=== PATIENT | female | born 1935 | race Caucasian/White ===

== ENCOUNTER 2018-12-15 01:04 | Inpatient (IN) | payer MEDICARE, OTHER ==
[2018-12-15] VITALS (27 sets, daily range): BP systolic 101–143; BP diastolic 46–94; PULSE 59–74; RESP 14–21; Ht 154.9 cm; Wt 83.9 kg
[~2018-12-15] VITALS: Ht 154.9 cm; Wt 83.9 kg
[~2018-12-15 01:04] MED LIST: ACET650S25 PO; ALBU18HF INH; ALEN70SO3 PO; ASPI-676 PO; ASPI-831 PO; ATRO INH; BENA10TA4 PO; BISA10SU55 PR; CHOL50009 PO; CLON0.1T14 PO; CLON1PAT2 TRANSDERM; DEXL60CA2 PO; DICL100G9 TP; EXEL46P TD; EXEL46P TRANSDERM; EZET10TA31 PO; FAMO20TA18 PO; FLUT1DIS23 IH; FURO40TA4 PO; GABA300C16 PO; GLIM1TAB2 PO; LAS20 PO; LOSA1TAB22 PO; MELO7.5T38 PO; MEMA5TAB PO; OLOP5DRO12 OP; SIMV20TA2 PO; THEO80EL4 PO; TIOT18CA IH; TIOT18CA INH; ventolin
[2018-12-15] MEDS ORDERED: PROPOFOL 100 ML IV STA (01:12)
[2018-12-15] MEDS ORDERED: SUCCINYLCHOLINE CHLORIDE 100 MG/5 ML SYG IV ONE (01:30)
[2018-12-15] MEDS ORDERED: ETOMIDATE 20 MG INJ IV ONE (01:30)
[2018-12-15] MEDS: FENTAnyl (DRIP) 1000 mcg/100mL 100 ML IV SCH ×2 (01:56→12:54)
[2018-12-15] MEDS ORDERED: LORAZEPAM 2 MG INJ ONE (02:35)
[2018-12-15] MEDS ORDERED: LORAZEPAM 2 MG INJ IV ONE (03:00)
[2018-12-15] MEDS ORDERED: DEXAMETHASONE 10 MG/ML 1 ML INJ IV ONE (03:00)
[2018-12-15] MEDS ORDERED: SODIUM CHLORIDE 0.9% 1L BAG IV* ONE (04:00)
[2018-12-15] MEDS ORDERED: ONDANSETRON 4 MG INJ IV PRN (05:30)
[2018-12-15] MEDS ORDERED: IPRATROPIUM (HFA) 12.9 GM INHALER INH PRN (05:30)
[2018-12-15] MEDS ORDERED: ACETAMINOPHEN 650 MG SUPP PR ONE (05:30)
[2018-12-15] MEDS ORDERED: ACETAMINOPHEN 650MG/20.3ML CUP PO PRN (05:30)
[2018-12-15] MEDS ORDERED: ALBUTEROL HFA 8 GM INHALER INH PRN (05:30)
[2018-12-15] MEDS ORDERED: MIDAZOLAM (DRIP) 50 mg/50 mL 50 ML IV SCH (06:30)
[2018-12-15] MEDS: PANTOPRAZOLE 40 MG INJ IV SCH (06:40)
[2018-12-15] MEDS: DEXTROSE 5%-0.45% NACL 1,000 ML IV SCH ×2 (06:41→15:05)
[2018-12-15] MEDS: TIOTROPIUM 18 MCG CAPSULE INHA DEV INH SCH (08:17)
[2018-12-15] MEDS: ENOXAPARIN 40 MG/0.4 ML SYG SC SCH (08:24)
[2018-12-15] MEDS: CEFTRIAXONE 1 GM/50 ML (PMX) 50 ML IVPB SCH (08:25)
[2018-12-15] MEDS: ASPIRIN 81 MG TAB PO SCH (08:25)
[2018-12-15] MEDS: RIVASTIGMINE 4.6MG/24H PATCH TRANSDERM SCH (08:30)
[2018-12-15] MEDS ORDERED: METHYLPREDNISOLONE 125 MG INJ IV SCH (09:00)
[2018-12-15] MEDS ORDERED: EZETIMIBE 10 MG TAB PO SCH (09:00)
[2018-12-15] MEDS: AZITHROMYCIN 500MG/NS (PMX) 250 ML IVPB SCH (10:00)
[2018-12-15] MEDS: PROPOFOL 100 ML IV SCH ×4 (10:00→23:24)
[2018-12-16] VITALS (38 sets, daily range): BP systolic 91–145; BP diastolic 43–89; PULSE 45–60; RESP 14–19
[2018-12-16] MEDS: FENTAnyl (DRIP) 1000 mcg/100mL 100 ML IV SCH (02:38)
[2018-12-16] MEDS: DEXTROSE 5%-0.45% NACL 1,000 ML IV SCH ×2 (04:19→11:05)
[2018-12-16] MEDS: PANTOPRAZOLE 40 MG INJ IV SCH (04:22)
[2018-12-16] MEDS: TIOTROPIUM 18 MCG CAPSULE INHA DEV INH SCH (09:00)
[2018-12-16] MEDS: ASPIRIN 81 MG TAB PO SCH (09:58)
[2018-12-16] MEDS: PROPOFOL 100 ML IV SCH ×2 (09:58→20:20)
[2018-12-16] MEDS: CEFTRIAXONE 1 GM/50 ML (PMX) 50 ML IVPB SCH (09:58)
[2018-12-16] MEDS: RIVASTIGMINE 4.6MG/24H PATCH TRANSDERM SCH (09:59)
[2018-12-16] MEDS ORDERED: METHYLPREDNISOLONE 125 MG INJ IV ONE (10:00)
[2018-12-16] MEDS: ENOXAPARIN 40 MG/0.4 ML SYG SC SCH (10:01)
[2018-12-16] MEDS: ALBUMIN HUMAN 25% 100 ML IV SCH ×2 (10:21→18:37)
[2018-12-16] MEDS: AZITHROMYCIN 500MG/NS (PMX) 250 ML IVPB SCH (10:21)
[2018-12-17] VITALS (35 sets, daily range): BP systolic 90–147; BP diastolic 37–104; PULSE 37–54; RESP 11–17
[2018-12-17] MEDS: POTASSIUM CHLORIDE 100 ML IVPB SCH ×2 (01:04→03:53)
[2018-12-17] MEDS: PROPOFOL 100 ML IV SCH ×5 (02:20→20:15)
[2018-12-17] MEDS: ALBUMIN HUMAN 25% 100 ML IV SCH (03:04)
[2018-12-17] MEDS: FENTAnyl (DRIP) 1000 mcg/100mL 100 ML IV SCH (04:41)
[2018-12-17] MEDS: PANTOPRAZOLE 40 MG INJ IV SCH (05:23)
[2018-12-17] MEDS: RIVASTIGMINE 4.6MG/24H PATCH TRANSDERM SCH (08:12)
[2018-12-17] MEDS: SODIUM CHLORIDE 1 GM TAB PO SCH ×3 (08:12→20:14)
[2018-12-17] MEDS: ASPIRIN 81 MG TAB PO SCH (08:12)
[2018-12-17] MEDS: CEFTRIAXONE 1 GM/50 ML (PMX) 50 ML IVPB SCH (08:13)
[2018-12-17] MEDS: ENOXAPARIN 40 MG/0.4 ML SYG SC SCH (08:20)
[2018-12-17] MEDS: AZITHROMYCIN 500MG/NS (PMX) 250 ML IVPB SCH (08:55)
[2018-12-17] MEDS: TIOTROPIUM 18 MCG CAPSULE INHA DEV INH SCH (09:00)
[2018-12-17] MEDS ORDERED: METHYLPREDNISOLONE 125 MG INJ IV ONE (10:00)
[2018-12-17] MEDS: FUROSEMIDE 20 MG INJ IV SCH (12:27)
[2018-12-17] MEDS ORDERED: COLLAGENASE 5 GM (UD JAR) TOP SCH (16:00)
[2018-12-17] MEDS: COLLAGENASE 5 GM (UD JAR) TOP SCH (20:14)
[2018-12-18] VITALS (35 sets, daily range): BP systolic 100–173; BP diastolic 46–142; PULSE 37–98; RESP 12–26
[2018-12-18] MEDS: PROPOFOL 100 ML IV SCH ×2 (00:10→03:58)
[2018-12-18] MEDS: PANTOPRAZOLE 40 MG INJ IV SCH (06:00)
[2018-12-18] MEDS: FUROSEMIDE 20 MG INJ IV SCH (06:00)
[2018-12-18] MEDS: SODIUM CHLORIDE 1 GM TAB PO SCH ×3 (08:03→21:30)
[2018-12-18] MEDS: ASPIRIN 81 MG TAB PO SCH (08:03)
[2018-12-18] MEDS: CEFTRIAXONE 1 GM/50 ML (PMX) 50 ML IVPB SCH (08:03)
[2018-12-18] MEDS: RIVASTIGMINE 4.6MG/24H PATCH TRANSDERM SCH (08:03)
[2018-12-18] MEDS: ENOXAPARIN 40 MG/0.4 ML SYG SC SCH (08:09)
[2018-12-18] MEDS: TIOTROPIUM 18 MCG CAPSULE INHA DEV INH SCH (08:10)
[2018-12-18] MEDS: AZITHROMYCIN 500MG/NS (PMX) 250 ML IVPB SCH (08:46)
[2018-12-18] MEDS ORDERED: METHYLPREDNISOLONE 40 MG INJ IV ONE (10:00)
[2018-12-18] MEDS ORDERED: FUROSEMIDE 20 MG INJ IV ONE ×2 (12:00→13:00)
[2018-12-18] MEDS: ALBUMIN HUMAN 25% 100 ML IV SCH ×3 (14:40→21:33)
[2018-12-18] MEDS: COLLAGENASE 5 GM (UD JAR) TOP SCH (21:29)
[2018-12-19] VITALS (18 sets, daily range): BP systolic 132–173; BP diastolic 48–120; PULSE 63–81; RESP 16–22
[2018-12-19] MEDS: PANTOPRAZOLE 40 MG INJ IV SCH (05:07)
[2018-12-19] MEDS: ALBUMIN HUMAN 25% 100 ML IV SCH (05:08)
[2018-12-19] MEDS: FUROSEMIDE 20 MG INJ IV SCH (05:08)
[2018-12-19] MEDS: SODIUM CHLORIDE 1 GM TAB PO SCH (09:00)
[2018-12-19] MEDS ORDERED: BENAZEPRIL 5 MG TAB PO SCH ×2 (09:00→11:00)
[2018-12-19] MEDS: ASPIRIN 81 MG TAB PO SCH (09:24)
[2018-12-19] MEDS: CEFTRIAXONE 1 GM/50 ML (PMX) 50 ML IVPB SCH (09:25)
[2018-12-19] MEDS: RIVASTIGMINE 4.6MG/24H PATCH TRANSDERM SCH (09:26)
[2018-12-19] MEDS ORDERED: POTASSIUM CHLORIDE 20 MEQ POWDER FOR ORAL SOLN GTB ONE (09:30)
[2018-12-19] MEDS: PROPOFOL 100 ML IV SCH (09:30)
[2018-12-19] MEDS: ENOXAPARIN 40 MG/0.4 ML SYG SC SCH (09:36)
[2018-12-19] MEDS ORDERED: METHYLPREDNISOLONE 40 MG INJ IV ONE (10:00)
[2018-12-19] MEDS: AZITHROMYCIN 500MG/NS (PMX) 250 ML IVPB SCH (10:49)
[2018-12-19] MEDS: COLLAGENASE 5 GM (UD JAR) TOP SCH (21:22)
[2018-12-20] VITALS (7 sets, daily range): BP systolic 123–186; BP diastolic 49–78; PULSE 60–73; RESP 16–20
[2018-12-20] MEDS ORDERED: CLONIDINE 0.2 MG/24 HR PATCH TRANSDERM SCH (01:30)
[2018-12-20] MEDS: FUROSEMIDE 20 MG INJ IV SCH (05:41)
[2018-12-20] MEDS: CEFTRIAXONE 1 GM/50 ML (PMX) 50 ML IVPB SCH (09:23)
[2018-12-20] MEDS: FAMOTIDINE 20 MG INJ IV SCH (09:23)
[2018-12-20] MEDS: TIOTROPIUM 18 MCG CAPSULE INHA DEV INH SCH (09:24)
[2018-12-20] MEDS: RIVASTIGMINE 4.6MG/24H PATCH TRANSDERM SCH (09:24)
[2018-12-20] MEDS: AZITHROMYCIN 500MG/NS (PMX) 250 ML IVPB SCH (09:24)
[2018-12-20] MEDS: ASPIRIN 81 MG TAB PO SCH (09:25)
[2018-12-20] MEDS: BENAZEPRIL 10 MG TAB PO SCH (09:25)
[2018-12-20] MEDS: ENOXAPARIN 40 MG/0.4 ML SYG SC SCH (09:27)
[2018-12-20] MEDS ORDERED: POTASSIUM CHLORIDE (SR) 10 MEQ TAB PO ONE (09:30)
[2018-12-20] MEDS ORDERED: BISACODYL 10 MG SUPP PR PRN (12:00)
[2018-12-20] MEDS: COLLAGENASE 5 GM (UD JAR) TOP SCH (20:31)
[2018-12-21 02:00] VITALS: BP_SYST 122; BP_SYST 138; BP_DIAS 58; BP_DIAS 63; PULSE 67; RESP 19
[2018-12-21 05:25] VITALS: BP 128/67; PULSE 70
[2018-12-21] MEDS: FUROSEMIDE 20 MG INJ IV SCH (05:25)
[2018-12-21 08:21] VITALS: BP 144/64; PULSE 74; RESP 19
[2018-12-21] MEDS: RIVASTIGMINE 4.6MG/24H PATCH TRANSDERM SCH (09:29)
[2018-12-21] MEDS: FAMOTIDINE 20 MG INJ IV SCH (09:29)
[2018-12-21] MEDS: ASPIRIN 81 MG TAB PO SCH (09:30)
[2018-12-21] MEDS: BENAZEPRIL 10 MG TAB PO SCH (09:30)
[2018-12-21] MEDS: TIOTROPIUM 18 MCG CAPSULE INHA DEV INH SCH (09:30)
[2018-12-21] MEDS: ENOXAPARIN 40 MG/0.4 ML SYG SC SCH (09:32)
[2018-12-21 14:52] VITALS: BP 132/67; PULSE 80; RESP 18
[2018-12-21 20:00] VITALS: BP 102/60; PULSE 82; RESP 19
[2018-12-21] MEDS: COLLAGENASE 5 GM (UD JAR) TOP SCH (21:00)
[2018-12-22 02:00] VITALS: BP 113/58; PULSE 81; RESP 17
[2018-12-22] MEDS: FUROSEMIDE 20 MG INJ IV SCH (05:51)
[2018-12-22 07:27] VITALS: BP 121/58; PULSE 76; RESP 18
[2018-12-22] MEDS: TIOTROPIUM 18 MCG CAPSULE INHA DEV INH SCH (09:15)
[2018-12-22] MEDS: FAMOTIDINE 20 MG TAB PO SCH (09:20)
[2018-12-22] MEDS: ASPIRIN 81 MG TAB PO SCH (09:20)
[2018-12-22] MEDS: BENAZEPRIL 10 MG TAB PO SCH (09:20)
[2018-12-22] MEDS: RIVASTIGMINE 4.6MG/24H PATCH TRANSDERM SCH (09:22)
[2018-12-22] MEDS: ENOXAPARIN 40 MG/0.4 ML SYG SC SCH (09:24)
[2018-12-22] MEDS ORDERED: ACETAZOLAMIDE 250 MG TAB PO ONE (13:30)
[2018-12-22 14:00] VITALS: BP 93/49; PULSE 74; RESP 18
[2018-12-22 20:01] VITALS: BP 107/49; PULSE 78; RESP 16
[2018-12-23 02:41] VITALS: BP 130/60; PULSE 73; RESP 17
[2018-12-23 07:56] VITALS: BP 130/58; PULSE 74; RESP 18
[2018-12-23] MEDS: FAMOTIDINE 20 MG TAB PO SCH (08:59)
[2018-12-23] MEDS: BENAZEPRIL 10 MG TAB PO SCH (08:59)
[2018-12-23] MEDS: ASPIRIN 81 MG TAB PO SCH (08:59)
[2018-12-23] MEDS: FUROSEMIDE 20 MG TAB PO SCH (08:59)
[2018-12-23] MEDS: RIVASTIGMINE 4.6MG/24H PATCH TRANSDERM SCH (09:00)
[2018-12-23] MEDS: TIOTROPIUM 18 MCG CAPSULE INHA DEV INH SCH (09:00)
[2018-12-23] MEDS: ENOXAPARIN 40 MG/0.4 ML SYG SC SCH (09:02)
[2018-12-23 14:00] VITALS: BP 110/57; PULSE 81; RESP 18
[2018-12-23 19:27] VITALS: BP 114/53; PULSE 90; RESP 18
[2018-12-23 20:10] VITALS: BP 133/77; PULSE 80; RESP 18
[2018-12-23 20:36] VITALS: PULSE 87
[2018-12-24 02:23] VITALS: BP 116/56; PULSE 82; RESP 20
[2018-12-24 08:33] VITALS: BP 108/52; PULSE 80; RESP 17
[2018-12-24] MEDS: FUROSEMIDE 20 MG TAB PO SCH (09:33)
[2018-12-24] MEDS: BENAZEPRIL 10 MG TAB PO SCH (09:33)
[2018-12-24] MEDS: FAMOTIDINE 20 MG TAB PO SCH (09:33)
[2018-12-24] MEDS: ASPIRIN 81 MG TAB PO SCH (09:33)
[2018-12-24] MEDS: TIOTROPIUM 18 MCG CAPSULE INHA DEV INH SCH (09:34)
[2018-12-24] MEDS: RIVASTIGMINE 4.6MG/24H PATCH TRANSDERM SCH (09:35)
[2018-12-24] MEDS: ENOXAPARIN 40 MG/0.4 ML SYG SC SCH (09:35)
[2018-12-24 14:55] VITALS: BP 114/55; PULSE 88; RESP 18
== END 2018-12-24 16:20 | disposition home or self-care (01) | DRG 871 ==
LOC: E/R 01:04 → ICU 02:43 → MS3 12-19 15:38
PROVIDERS: ADMIT Internal Medicine; ATTEND Family Medicine
PROC: 0BH17EZ Insertion of Endotracheal Airway into Trachea, Via Natural or Artificial Opening (ICD-10-PCS; principal; 2018-12-15)
PROC: 5A1945Z Respiratory Ventilation, 24-96 Consecutive Hours (ICD-10-PCS; 2018-12-15)
PROC: 3E0F7GC Introduction of Other Therapeutic Substance into Respiratory Tract, Via Natural or Artificial Opening (ICD-10-PCS; 2018-12-18)
DX: A41.9 Sepsis, unspecified organism (principal); J96.01 Acute respiratory failure with hypoxia; J96.02 Acute respiratory failure with hypercapnia; E87.1 Hypo-osmolality and hyponatremia; Z99.81 Dependence on supplemental oxygen; D69.6 Thrombocytopenia, unspecified; I73.9 Peripheral vascular disease, unspecified; F03.90 Unspecified dementia, unspecified severity, without behavioral disturbance, psychotic disturbance, mood disturbance, and anxiety; I10 Essential (primary) hypertension; E87.6 Hypokalemia; D50.9 Iron deficiency anemia, unspecified; E78.5 Hyperlipidemia, unspecified; R32 Unspecified urinary incontinence; I89.0 Lymphedema, not elsewhere classified; M81.0 Age-related osteoporosis without current pathological fracture; Z79.82 Long term (current) use of aspirin; Z86.711 Personal history of pulmonary embolism
CPT/HCPCS: 31500; 36415; 36573; 36600; 71045; 80048; 80053; 81001; 82150; 82803; 83036; 83540; 83605; 83735; 83880; 84145; 84439; 84443; 84484; 85025; 85378; 85610; 85730; 87081; 87086; 92526; 92610; 93005; 93306; 94002; 94003; 94770; 96374; 96375; 97110; 97162; 97530; C9113; J0456; J0696; J1100; J1650; J1940; J2060; J2250; J2920; J2930; J3010; J3480; J7030; J7042; P9047

== ENCOUNTER 2019-02-21 10:10 | Inpatient (IN) | payer MEDICARE, OTHER ==
[~2019-02-21] VITALS: Ht 152.4 cm; Wt 104.5 kg
[~2019-02-21 10:10] MED LIST changes: -ALEN70SO3 PO; -ASPI-676 PO; -BENA10TA4 PO; +BENA10TA6 PO; -CHOL50009 PO; -DEXL60CA2 PO; -DICL100G9 TP; -EXEL46P TD; -EZET10TA31 PO; -FLUT1DIS23 IH; -FURO40TA4 PO; -GABA300C16 PO; -GLIM1TAB2 PO; -LOSA1TAB22 PO; -MELO7.5T38 PO; -MEMA5TAB PO; -OLOP5DRO12 OP; -SIMV20TA2 PO; -THEO80EL4 PO; -TIOT18CA IH; -ventolin
[2019-02-21] MEDS ORDERED: ALBUTEROL 0.083% (NEB) 2.5 MG/3 ML AMP HHN STA (10:27)
[2019-02-21] MEDS ORDERED: METHYLPREDNISOLONE 125 MG INJ IV ONE (10:30)
[2019-02-21] MEDS ORDERED: IPRATROPIUM (NEB) 0.5 MG/2.5 ML AMP HHN ONE (10:30)
[2019-02-21] MEDS ORDERED: FUROSEMIDE 40 MG INJ IV ONE (12:00)
[2019-02-21] MEDS ORDERED: ONDANSETRON 4 MG INJ IV PRN (13:00)
[2019-02-21] MEDS ORDERED: ACETAMINOPHEN 325 MG TAB PO PRN (13:00)
[2019-02-21 17:40] VITALS: Ht 152.4 cm; Wt 104.5 kg
[2019-02-21 20:00] VITALS: BP 107/57; PULSE 73; RESP 18
[2019-02-21] MEDS ORDERED: BISACODYL 10 MG SUPP PR PRN (20:00)
[2019-02-21] MEDS ORDERED: ACETAMINOPHEN 650MG/20.3ML CUP PO PRN (20:00)
[2019-02-21] MEDS ORDERED: CLONIDINE 0.2 MG/24 HR PATCH TRANSDERM SCH (20:00)
[2019-02-21] MEDS ORDERED: ALBUTEROL 18 GM INHALER INH PRN (20:00)
[2019-02-21] MEDS ORDERED: IPRATROPIUM (HFA) 12.9 GM INHALER INH PRN (20:00)
[2019-02-21] MEDS: FUROSEMIDE 20 MG INJ IV SCH (22:16)
[2019-02-21 23:33] VITALS: BP 131/64; PULSE 82; RESP 1; RESP 19
[2019-02-22] MEDS: LORAZEPAM 2 MG INJ IV PRN (01:34)
[2019-02-22 04:05] VITALS: BP 154/62; PULSE 103; RESP 18
[2019-02-22 07:33] VITALS: BP 122/58; PULSE 98; RESP 19
[2019-02-22] MEDS ORDERED: METHYLPREDNISOLONE 40 MG INJ IV ONE (09:00)
[2019-02-22] MEDS: FAMOTIDINE 20 MG TAB PO SCH (09:38)
[2019-02-22] MEDS: FUROSEMIDE 20 MG INJ IV SCH ×3 (09:39→22:00)
[2019-02-22] MEDS: TIOTROPIUM 18 MCG CAPSULE INHA DEV INH SCH (09:39)
[2019-02-22] MEDS: BENAZEPRIL 10 MG TAB PO SCH (09:40)
[2019-02-22] MEDS: ASPIRIN 81 MG TAB PO SCH (09:40)
[2019-02-22 10:15] VITALS: PULSE 95
[2019-02-22 11:07] VITALS: BP 120/56; PULSE 94; RESP 18
[2019-02-22] MEDS ORDERED: CHLOROTHIAZIDE 500 MG INJ IV ONE (11:30)
[2019-02-22] MEDS ORDERED: CHLOROTHIAZIDE 500 MG in SOD CHLORIDE 0.9% 50 ML IVPB ONE (12:30)
[2019-02-22 15:00] VITALS: BP 118/56; PULSE 98; RESP 19
[2019-02-22] MEDS: AZITHROMYCIN 500 MG in SOD CHLORIDE 0.9% 250 ML IVPB SCH (20:42)
[2019-02-22 20:59] VITALS: BP 128/60; PULSE 95; RESP 19
[2019-02-23] VITALS: BP 125/65; PULSE 82; RESP 18
[2019-02-23 05:06] VITALS: BP 126/66; PULSE 85; RESP 18
[2019-02-23] MEDS: FUROSEMIDE 20 MG INJ IV SCH (05:14)
[2019-02-23] MEDS ORDERED: METHYLPREDNISOLONE 40 MG INJ IV ONE (06:00)
[2019-02-23 07:39] VITALS: BP 160/70; PULSE 79; RESP 22
[2019-02-23] MEDS ORDERED: CHLOROTHIAZIDE 500 MG INJ IV ONE ×2 (09:30→11:00)
[2019-02-23 11:56] VITALS: BP 131/89; PULSE 84; RESP 20
[2019-02-23 16:11] VITALS: BP 122/60; PULSE 83
[2019-02-23] MEDS ORDERED: FUROSEMIDE 20 MG INJ IV SCH (18:00)
[2019-02-23 19:20] VITALS: BP 131/66; PULSE 83; RESP 18
[2019-02-23] MEDS: AZITHROMYCIN 500 MG in SOD CHLORIDE 0.9% 250 ML IVPB SCH (20:00)
[2019-02-24] VITALS: BP 129/60; PULSE 75; RESP 18
[2019-02-24 05:07] VITALS: BP 124/59; PULSE 75; RESP 18
[2019-02-24 07:35] VITALS: BP 142/63; PULSE 76; RESP 20
[2019-02-24] MEDS ORDERED: METHYLPREDNISOLONE 40 MG INJ IV ONE (09:00)
[2019-02-24 11:23] VITALS: BP 141/60; PULSE 77; RESP 20
[2019-02-24] MEDS: BENAZEPRIL 10 MG TAB PO SCH (11:33)
[2019-02-24] MEDS: ASPIRIN 81 MG TAB PO SCH (11:33)
[2019-02-24] MEDS: FAMOTIDINE 20 MG TAB PO SCH (11:33)
[2019-02-24] MEDS: TIOTROPIUM 18 MCG CAPSULE INHA DEV INH SCH (11:36)
[2019-02-24 14:59] VITALS: BP 129/61; PULSE 79; RESP 20
[2019-02-24] MEDS: LORAZEPAM 2 MG INJ IV PRN (19:49)
[2019-02-24 20:00] VITALS: BP 122/65; PULSE 83; RESP 18
[2019-02-24] MEDS: AZITHROMYCIN 500 MG in SOD CHLORIDE 0.9% 250 ML IVPB SCH (20:02)
[2019-02-25 03:52] VITALS: BP 130/59; PULSE 91; RESP 18
[2019-02-25 06:54] VITALS: BP 144/65; PULSE 86; RESP 22
[2019-02-25] MEDS: FAMOTIDINE 20 MG TAB PO SCH (09:58)
[2019-02-25] MEDS: ASPIRIN 81 MG TAB PO SCH (09:58)
[2019-02-25] MEDS: BENAZEPRIL 10 MG TAB PO SCH (09:58)
[2019-02-25] MEDS: TIOTROPIUM 18 MCG CAPSULE INHA DEV INH SCH (10:00)
[2019-02-25 11:05] VITALS: BP 131/61; PULSE 77; RESP 20
[2019-02-25 15:21] VITALS: BP 117/58; PULSE 79; RESP 20
[2019-02-25 19:14] VITALS: BP 139/62; PULSE 78; RESP 20
[2019-02-25] MEDS: AZITHROMYCIN 500 MG in SOD CHLORIDE 0.9% 250 ML IVPB SCH (19:37)
[2019-02-26 00:01] VITALS: BP 158/67; PULSE 84; RESP 20
[2019-02-26 08:05] VITALS: BP 124/60; PULSE 72; RESP 20
[2019-02-26] MEDS: ASPIRIN 81 MG TAB PO SCH (08:43)
[2019-02-26] MEDS: BENAZEPRIL 10 MG TAB PO SCH (08:43)
[2019-02-26] MEDS: FAMOTIDINE 20 MG TAB PO SCH (08:43)
[2019-02-26] MEDS: TIOTROPIUM 18 MCG CAPSULE INHA DEV INH SCH (08:45)
[2019-02-26 11:56] VITALS: BP 118/54; PULSE 73; RESP 20
[2019-02-26 15:53] VITALS: BP 113/58; PULSE 75; RESP 22
[2019-02-26 20:00] VITALS: BP 128/51; PULSE 76; RESP 20
[2019-02-26 23:27] VITALS: BP 135/75; PULSE 77; RESP 20
[2019-02-27 03:46] VITALS: BP 132/62; PULSE 90; RESP 18
[2019-02-27 07:31] VITALS: BP 101/52; PULSE 89; RESP 20
[2019-02-27] MEDS: BENAZEPRIL 10 MG TAB PO SCH (09:00)
[2019-02-27] MEDS: FAMOTIDINE 20 MG TAB PO SCH (09:10)
[2019-02-27] MEDS: ASPIRIN 81 MG TAB PO SCH (09:10)
[2019-02-27 11:05] VITALS: BP 102/49; PULSE 79; RESP 20
[2019-02-27 15:34] VITALS: BP 130/60; PULSE 80; RESP 20
== END 2019-02-27 17:33 | disposition home or self-care (01) | DRG 291 ==
LOC: E/R 10:10 → 6WM 12:43
PROVIDERS: ADMIT Family Medicine; ATTEND Family Medicine
DX: I11.0 Hypertensive heart disease with heart failure (principal); J96.21 Acute and chronic respiratory failure with hypoxia; J44.1 Chronic obstructive pulmonary disease with (acute) exacerbation; I50.43 Acute on chronic combined systolic (congestive) and diastolic (congestive) heart failure; F03.90 Unspecified dementia, unspecified severity, without behavioral disturbance, psychotic disturbance, mood disturbance, and anxiety; Z86.711 Personal history of pulmonary embolism; I89.0 Lymphedema, not elsewhere classified; R32 Unspecified urinary incontinence; E87.8 Other disorders of electrolyte and fluid balance, not elsewhere classified; D50.9 Iron deficiency anemia, unspecified; R06.89 Other abnormalities of breathing; Z66 Do not resuscitate; G47.33 Obstructive sleep apnea (adult) (pediatric)
CPT/HCPCS: 36415; 36600; 71045; 80048; 80053; 82803; 83540; 83605; 83735; 84443; 85025; 94660; 94664; 96374; 97162; J0456; J1205; J1940; J2060; J2920; J2930; J7050